=== PATIENT | female | born 2005 | race Caucasian/White ===

== ENCOUNTER 2024-06-08 15:03 | Emergency (ER) | payer OTHER ==
[~2024-06-08] VITALS: Ht 175.3 cm; Wt 63.5 kg
[2024-06-08 16:12] LABS: *BILIRUBIN,URIN NEGATIVE (NEGATIVE); *BLOOD, URINE NEGATIVE (NEGATIVE); *CLARITY,URINE SLIGHTLY CLOUDY (CLEAR); *COLOR,URINE YELLOW (YELLOW); *KETONES,URINE NEGATIVE (NEGATIVE); *PROTEIN,URINE NEGATIVE (NEGATIVE); LEUKOCYTE ESTERASE ,URINE 1+ (NEGATIVE); NITRITE, URINE NEGATIVE (NEGATIVE); PH,URINE 7.5 (5.0-8.0); UGLUCOSE NEGATIVE (NEGATIVE)
[2024-06-08 16:15] LABS: *URINE HCG, QUAL NEGATIVE (NEGATIVE)
[2024-06-08 16:19] LABS: BASOPHILS % (AUTO) 0.4 % (0.0-2.0); EOSINOPHILS # (AUTO) 0.1 K/uL (0.0-0.7); EOSINOPHILS % (AUTO) 1.6 % (0.0-7.0); HEMATOCRIT 37.1 % (31.2-41.9); HEMOGLOBIN 12.3 g/dL (10.9-14.3); LYMPHOCYTES # (AUTO) 1.2 K/uL (0.8-4.8); LYMPHOCYTES % (AUTO) 26.4 % (20.5-74.5); MEAN CORPUSCULAR HEMOGLOBIN 31.3 uug (24.7-32.8); MEAN CORPUSCULAR HGB CONC 33 g/dL (32.3-35.6); MEAN CORPUSCULAR VOLUME 94.7 fL (75.5-95.3); MONOCYTES # (AUTO) 0.3 K/uL (0.1-1.30); MONOCYTES % (AUTO) 6.6 % (0-11); NEUTROPHILS # (AUTO) 2.8 K/uL (1.8-8.9); PLATELET COUNT (AUTO) 196 K/uL (179-408); RED BLOOD CELL COUNT(AUTO) 3.92 MIL/uL (3.63-4.92); RED CELL DISTRIBUTION WIDTH 11.8 % (12.3-17.7); WHITE BLOOD COUNT (AUTO) 4.4 K/uL (3.8-11.8)
[2024-06-08 16:21] LABS: DIFFERENTIAL COMMENT 1
[2024-06-08 16:25] LABS: BACTERIA,URINE FEW /HPF (NONE SEEN); RBC,URINE 0-3 /HPF (0-3); SQUAMOUS EPITHELIAL CELL,UR FEW /HPF (NONE SEEN); WBC,URINE 20-50 /HPF (0-3)
[2024-06-08 16:28] LABS: CALCIUM 8.9 mg/dL (8.5-10.1); CARBON DIOXIDE 31 mmol/L (21-32); CHLORIDE 107 mmol/L (98-107); CREATININE 0.9 mg/dL (0.6-1.3); GLUCOSE 95 mg/dL (74-106); POTASSIUM 4.3 mmol/L (3.5-5.1); SODIUM SERUM 144 mmol/L (136-145); UREA NITROGEN, BLOOD 13 mg/dL (7-18)
[2024-06-08 16:37] LABS: ALANINE AMINOTRANSFERASE 15 U/L (14-59); ALKALINE PHOSPHATASE 56 U/L (50-136); ASPARTATE AMINOTRANSFERASE 8 U/L (15-37); BILIRUBIN,DIRECT 0.1 mg/dL (0.0-0.2); BILIRUBIN,TOTAL 0.3 mg/dL (0.2-1.0)
[2024-06-08 16:51] VITALS: BP 97/67; O2SAT 100
== END 2024-06-08 16:53 | disposition home or self-care (01) ==
LOC: ER 15:04
DX: S00.83XA Contusion of other part of head, initial encounter (principal); R10.2 Pelvic and perineal pain; R55 Syncope and collapse; W22.8XXA Striking against or struck by other objects, initial encounter; Y93.89 Activity, other specified; Y92.89 Other specified places as the place of occurrence of the external cause; Y99.8 Other external cause status
CPT/HCPCS: 36415; 70450; 72125; 84484; 84703; 85025; 85730; 93005; A4606; A4663